=== PATIENT | female | born 1955 | race Caucasian/White ===

== ENCOUNTER 2016-12-21 12:00 | Emergency (ER) | payer OTHER ==
[~2016-12-21] VITALS: Ht 167.6 cm; Wt 51.0 kg
[2016-12-21 12:01] VITALS: TEMP 36.7; Ht 167.6 cm; Wt 51.0 kg
[2016-12-21] MEDS ORDERED: TRAZ50TA35 PO (12:46)
[2016-12-21] MEDS ORDERED: SUCR1TAB29 PO (12:46)
[2016-12-21] MEDS ORDERED: VITA1CRE PO (12:46)
[2016-12-21] MEDS ORDERED: NIFE60TA57 PO (12:46)
[2016-12-21] MEDS ORDERED: B-COTAB18 PO (12:46)
[2016-12-21] MEDS ORDERED: FOLI1TAB7 PO (12:46)
[2016-12-21] MEDS ORDERED: FIBE1CAP PO (12:46)
[2016-12-21] MEDS ORDERED: HYDR-5688 PO ×2 (12:46→13:58)
[2016-12-21] MEDS ORDERED: RANI150T3 PO (12:46)
[2016-12-21] MEDS ORDERED: CYAN100020 PO (12:46)
[2016-12-21] MEDS ORDERED: DULO60CA44 PO (12:46)
[2016-12-21] MEDS ORDERED: OMEP40CA41 PO (12:46)
[2016-12-21] MEDS ORDERED: CHOL400T5 PO (12:46)
--- NOTE | 2016-12-21 12:55 | DIAGNOSTIC IMAGING REPORT ---
LEFT SHOULDER MIN 2 VIEWS ROUTINE, LEFT HUMERUS MIN 2 VIEWS ROUTINE CLINICAL HISTORY: fall, left shoulder pain COMPARISON STUDY: None. FINDINGS: Left humeral neck fracture which is slightly impacted. This extends to the greater tubercle of the humeral head. No dislocation. The distal left humerus and clavicle are intact IMPRESSION: Left humeral neck/head fracture as described above. No dislocation. Electronically signed by: Nathanael Baker M.D. 12/21/2016 12:54 PM Dictated Date/Time: 12/21/2016 12:52 PM
[2016-12-21 14:19] VITALS: BP 112/70; PULSE 68; O2SAT 99
--- NOTE | 2016-12-21 17:49 | EMERGENCY ROOM VISIT NOTE ---
History First contact with patient: 12:15 Chief Complaint: ARM PAIN Stated Complaint: BROKEN ARM History of Present Illness The patient is a 61 year old white female who presents to the Emergency Room with complaints of left arm pain after slipping and falling last night. She was attempting to feed her cats around 2 AM. She slipped in the grass and fell onto her left arm. She has had pain since. She states she went to see her PCP but there was no radiologist available. She states she was sent to [facility] but there was no radiologist services available there either. She reports here for further management. No prior history of left arm fracture. She points to the proximal humerus as her area of discomfort. Ecchymosis is develop. Her accompanies her today. She denies numbness or tingling. Right-hand dominant. Treatment has consisted of immobilization. Review of Systems REVIEW OF SYSTEM: HEENT: No dizziness, visual problems, hearing loss, or tinnitus. There is no difficulty swallowing and no oral lesions are present. PULMONARY: No cough, shortness of breath, sputum production or hemoptysis. CARDIOVASCULAR: No chest pain, palpitations, shortness of breath or peripheral edema. GASTROINTESTINAL: No diarrhea, constipation, nausea, vomiting, or abdominal pain. GENITOURINARY: No dysuria, frequency, urgency or nocturia. NEUROLOGIC: No weakness, muscle tenderness, epilepsy or history of neurological problems. MUSCULOSKELETAL: No history of joint tenderness/swelling. No history of arthritis or arthralgias. SKIN: No rashes or lesions. ENDOCRINE: No history of diabetes, thyroid disorders, or abnormal hair growth. Past Medical/Surgical History Previous surgeries: Multiple surgeries. Medical history: Significant for GERD. Family History Parents are . History of dementia and cancer as well as diabetes. Social History Smoking Status: Never Smoker Smokeless Tobacco Use: No Alcohol Use: none Drug Use: none Marital Status: Housing Status: lives with family Occupation Status: unemployed Current/Historical Medications Scheduled B-Complex Vitamins (Vitamin B Complex), 1 TAB PO DAILY Cholecalciferol (Vitamin D), 400 UNITS PO DAILY Cyanocobalamin (Vitamin B12), 1,000 MCG PO DAILY Duloxetine Hcl (Cymbalta), 60 MG PO DAILY Fiber (Fiber Formula), 1 CAP PO TID Folic Acid (Folvite), 1 MG PO DAILY Nifedipine Ext Rel (Procardia Xl Ext Rel), 60 MG PO DAILY Omeprazole (Prilosec), 40 MG PO BID Ranitidine Hcl (Zantac), 150 MG PO BID Sucralfate (Carafate), 1 GM PO TID Trazodone Hcl (Trazodone), 50 MG PO HS Vitamin E (Topical) (Vitamin E), 1,000 UNITS PO DAILY Scheduled PRN Hydrocodone/Acetaminophen 5MG/325MG ([place] 5MG/325MG), 1 TABLET PO Q4H PRN for Pain Hydrocodone/Acetaminophen 5MG/325MG ([place] 5MG/325MG), 1-2 TABLET PO Q6 PRN for Pain Allergies Coded Allergies: Penicillins (Unverified Allergy, Unknown, ., 12/21/16) Physical Exam Vital Signs Date Time Temp Pulse Resp B/P (MAP) Pulse Ox O2 Delivery O2 Flow Rate FiO2 12/21/16 14:19 68 16 112/70 99 12/21/16 12:01 36.7 97 16 153/84 97 Room Air Pain Rating (0-10): 4.0 Physical Exam Gen.: Well-developed, thin, middle-aged white female, who looks older than her stated age. Sitting on a bed. Alert and oriented. No acute distress. Skin:Warm and dry with good turgor. No rashes or lesions. Positive ecchymosisr and moderate edema. No erythema. The patient is not diaphoretic. No abrasions. Musculoskeletal: Left arm has swelling at the deltoid and proximal humerus. Limited shoulder motion secondary to discomfort. She has full flexion and extension of her elbow as well as supination and pronation. Full range of motion of the wrist and digits. No pain with palpation over clavicle. Neurologic: Gross sensation is intact across the left arm by soft touch. Peripheral pulses are 2+. Medical Decision & Procedures ER Provider Diagnostic Interpretation: Radiographic Imaging obtained today of the shoulder and humerus was read by radiology as positive for a proximal humeral fracture. It is impacted and minimally displaced. No dislocation. ED Course Patient was educated regarding today's findings as was her . Conservative care measures were discussed. She is placed in a well-padded coaptation splint over the humerus and deltoid. Sling and swath were provided. She will keep this in place at all times. Follow-up with orthopedics this week for further management. Hopefully it will not shift and she can be treated nonoperatively. Ice and elevate frequently to reduce pain and swelling. Prescription was provided for [place] 5 mg to be used every 6 hours as needed for more severe pain. Fall precautions were discussed. Return to the ED for any other concerns. Medical Decision Possibility of dislocation, fracture, strain, and cuff tear were considered among others. Impression Primary Impression: Fall at home Additional Impression: Closed fracture of left proximal humerus Departure Information Dispostion Home / Self-Care Condition GOOD Prescriptions Hydrocodone/Acetaminophen 5MG/325MG ([place] 5MG/325MG) Tab 1-2 TABLET PO Q6 Y for Pain, #20 TAB For Initial Treatment Prov: John Esposito,P.A. 12/21/16 Referrals Scott Masters M.D. Dinsmore, Harry M.D. Forms CARE OF CASTS, HOME CARE DOCUMENTATION FORM, SPECIAL NARCOTICS INSTRUCTIONS, MOTRIN USE, IMPORTANT VISIT INFORMATION Patient Instructions [facility] Additional Instructions Keep the splint on and dry at all times Keep your sling on at all times for comfort Ice and elevate frequently to reduce pain and swelling [place] 1 to 2 tablets every 6 hours as needed for severe pain Return to the ED for any other concerns Problem Qualifiers
== END 2016-12-21 14:19 | disposition home or self-care (01) ==
LOC: C.EDB 12:02 → C.EDD 14:19
DX: S42.202A Unspecified fracture of upper end of left humerus, initial encounter for closed fracture (principal); W01.0XXA Fall on same level from slipping, tripping and stumbling without subsequent striking against object, initial encounter; K21.9 Gastro-esophageal reflux disease without esophagitis; Z79.899 Other long term (current) drug therapy; Z98.890 Other specified postprocedural states; Z88.0 Allergy status to penicillin; Z81.8 Family history of other mental and behavioral disorders; Z83.3 Family history of diabetes mellitus; Z80.9 Family history of malignant neoplasm, unspecified